=== PATIENT | male | born 1955 | race Caucasian/White ===

== ENCOUNTER 2016-06-13 10:03 | Outpatient (CLI) | payer OTHER ==
--- NOTE | 2016-06-13 12:14 | DIAGNOSTIC IMAGING REPORT ---
PROCEDURE: CT ABDOMEN W/WO CONTRAST INDICATION: ABNORMAL LIVER FUNTION TECHNIQUE: Axial scans before and after 125 ml Isovue 300 IV through the abdomen. Coronal and sagittal re-formations were obtained. COMPARISON: None. FINDINGS: Liver measures 18 cm with a normal appearance. Gallbladder, pancreas, spleen, adrenal glands and kidneys are normal. Normal abdominal aorta. Small hiatal hernia. Nonspecific bowel gas pattern. No ascites. Mild degenerative changes of the spine. IMPRESSION: 1. Normal liver 2. Small hiatal hernia
== END 2016-06-13 23:00 ==
LOC: CT SRH 10:03
DX: K76.89 Other specified diseases of liver (principal)